=== PATIENT | female | born 1965 | race Caucasian/White ===

== ENCOUNTER → 2017-03-10 | Day surgery (SDC) | payer MEDICARE, BC | LOC: MSO 02-24 07:11 | DX: Z12.11 Encounter for screening for malignant neoplasm of colon (principal); D12.2 Benign neoplasm of ascending colon; I11.0 Hypertensive heart disease with heart failure | CPT/HCPCS: 00810; J2405; J3010; J7120 ==

== ENCOUNTER 2024-07-01 07:54 | Outpatient (RCR) | payer MEDICARE, BC | END 2024-07-31 | disposition home or self-care (01) | LOC: PT | DX: M79.662 Pain in left lower leg (principal) | CPT/HCPCS: G0283-GP ==